=== PATIENT | male | born 1990 | race Two or more races ===

== ENCOUNTER 2017-08-05 15:58 | Emergency (ER) | payer BC ==
[2017-08-05] MEDS ORDERED: Ondansetron 4 MG/2 ML SDV IV ONE (16:31)
--- NOTE | 2017-08-05 16:37 | EDM.PDOC ---
ED HPI GENERAL MEDICAL PROBLEM - General Chief Complaint: Abdominal Pain Stated Complaint: POSSIBLE APPENDICISITIS [id number] Time Seen by Provider: 08/05/17 16:32 Source of Information: Reports: Patient History Limitations: Reports: No Limitations - History of Present Illness INITIAL COMMENTS - FREE TEXT/NARRATIVE: This 27 yo male patient reports to the ED with increased right lower quadrant pain. The patient reports his pain started at about 0400 this morning and has continued to get worse throughout the day. The patient reports he has also been nauseated and vomiting. The patient has attempted to sip on water, but has been throwing that up each time he drinks some. The patient reports he has no history of drug or ETOH use. The patient reports his grandfather recently of pancreatic cancer. The patient reports he had a normal bowel movement yesterday, but has not had a bowel movement today. The patient has no history of abdominal surgeries. Onset: Today Onset Date: 08/05/17 Onset Time: 04:00 Duration: Constant, Getting Worse Location: Reports: Abdomen (RLQ) Quality: Reports: Ache, Sharp, Stabbing Severity: Severe Improves with: Reports: None Worsens with: Reports: None Associated Symptoms: Reports: Nausea/Vomiting Right Lower Abdominal Pain Score (Numeric/FACES): 8 - Related Data Allergies Allergy/AdvReac Type Severity Reaction Status Date / Time No Known Allergies Allergy Verified 08/05/17 16:29 Home Meds: Home Meds . [No Known Home Meds] 08/05/17 [History] ED ROS GENERAL - Review of Systems Review Of Systems: ROS reveals no pertinent complaints other than HPI. ED EXAM, GI/ABD - Physical Exam Exam: See Below Exam Limited By: No Limitations General Appearance: Alert, WD/WN, Moderate Distress Eyes: Bilateral: Normal Appearance, EOMI Ears: Normal External Exam, Normal Canal, Hearing Grossly Normal, Normal TMs Nose: Normal Inspection, Normal Mucosa, No Blood Throat/Mouth: Normal Inspection, Normal Lips, Normal Teeth, Normal Gums, Normal Oropharynx, Normal Voice, No Airway Compromise Head: Atraumatic, Normocephalic Neck: Normal Inspection, Supple, Non-Tender, Full Range of Motion Respiratory/Chest: No Respiratory Distress, Lungs Clear, Normal Breath Sounds, No Accessory Muscle Use, Chest Non-Tender Cardiovascular: Normal Peripheral Pulses, Regular Rate, Rhythm, No Edema, No Gallop, No JVD, No Murmur, No Rub GI/Abdominal Exam: Normal Bowel Sounds, Guarding (RLQ), Rebound (RLQ), Tender, Other (Male) Exam: Deferred Rectal (Males) Exam: Deferred Back Exam: Normal Inspection, Full Range of Motion, NT Extremities: Normal Inspection, Normal Range of Motion, Non-Tender, Normal Capillary Refill, No Pedal Edema Neurological: Alert, Oriented, CN II-XII Intact, Normal Cognition, Normal Gait, Normal Reflexes, No Motor/Sensory Deficits Psychiatric: Normal Affect, Normal Mood Skin Exam: Warm, Dry, Intact, Normal Color, No Rash Lymphatic: No Adenopathy Course - Vital Signs Last Recorded V/S: Last Vital Signs Temp 37.3 C 08/05/17 16:05 Pulse 80 08/05/17 16:05 Resp 18 08/05/17 16:05 BP 175/80 H 08/05/17 16:05 Pulse Ox 99 08/05/17 16:05 - Orders/Labs/Meds Labs: Laboratory Tests 08/05/17 08/05/17 08/05/17 Range/Units 16:03 16:03 16:18 WBC 8.1 (5.0-10.0) 10^3/uL RBC 6.22 H (4.6-6.2) 10^6/uL Hgb 17.2 (14.0-18.0) g/dL Hct 48.6 (40.0-54.0) % MCV 78.1 L (80-100) fL MCH 27.7 (27.0-34.0) pg MCHC 35.4 H (33.0-35.0) g/dL Plt Count 164 (150-450) 10^3/uL Neut % (Auto) 68.1 (42.2-75.2) % Lymph % (Auto) 21.9 (20.5-50.1) % [place] % (Auto) 6.6 (2-8) % Eos % (Auto) 3.2 H (1.0-3.0) % Baso % (Auto) 0.2 (0.0-1.0) % Sodium (135-145) mmol/L Potassium (3.6-5.0) mmol/L Chloride (101-111) mmol/L Carbon Dioxide (21.0-31.0) mmol/L Anion Gap BUN (7-18) mg/dL Creatinine (0.6-1.3) mg/dL Est Cr Clr Drug Dosing Estimated GFR (MDRD) BUN/Creatinine Ratio Glucose (74-105) mg/dL Calcium (8.4-10.2) mg/dl Total Bilirubin (0.2-1.0) mg/dL AST (10-42) IU/L ALT (10-60) IU/L Alkaline Phosphatase (42-121) IU/L Total Protein (6.7-8.2) g/dl Albumin (3.2-5.5) g/dl Globulin Albumin/Globulin Ratio Amylase (28-100) U/L Lipase (22-51) U/L Urine Color Dark yellow (YELLOW) Urine Appearance Slightly cloudy (CLEAR) Urine pH 6.0 (5.0-9.0) Ur Specific [place] >= 1.030 (1.005-1.030) Urine Protein 30 H (NEGATIVE) Urine Glucose (UA) 500 H (NEGATIVE) Urine Ketones Trace H (NEGATIVE) Urine Occult Blood Negative (NEGATIVE) Urine Nitrite Negative (NEGATIVE) Urine Bilirubin Negative (NEGATIVE) Urine Urobilinogen 0.2 (0.2-1.0) mg/dL Ur Leukocyte Esterase Negative (NEGATIVE) Urine RBC 0-5 /HPF Urine WBC Not seen (0-5/HPF) /HPF Ur Epithelial Cells Rare /HPF Urine Mucus Few H /LPF Urine Opiates Screen Negative (NEGATIVE) Ur Oxycodone Screen Negative (NEGATIVE) Urine Methadone Screen Negative (NEGATIVE) Ur Barbiturates Screen Negative (NEGATIVE) U Tricyclic Antidepress Negative (NEGATIVE) Ur Phencyclidine Scrn Negative (NEGATIVE) Ur Amphetamine Screen Negative (NEGATIVE) U Methamphetamines Scrn Negative (NEGATIVE) Urine MDMA Screen Negative (NEGATIVE) U Benzodiazepines Scrn Negative (NEGATIVE) Urine Cocaine Screen Negative (NEGATIVE) U Marijuana (THC) Screen Negative (NEGATIVE) 08/05/17 08/05/17 08/05/17 Range/Units 16:18 16:18 16:18 WBC (5.0-10.0) 10^3/uL RBC (4.6-6.2) 10^6/uL Hgb (14.0-18.0) g/dL Hct (40.0-54.0) % MCV (80-100) fL MCH (27.0-34.0) pg MCHC (33.0-35.0) g/dL Plt Count (150-450) 10^3/uL Neut % (Auto) (42.2-75.2) % Lymph % (Auto) (20.5-50.1) % [place] % (Auto) (2-8) % Eos % (Auto) (1.0-3.0) % Baso % (Auto) (0.0-1.0) % Sodium 139 (135-145) mmol/L Potassium 3.8 (3.6-5.0) mmol/L Chloride 102 (101-111) mmol/L Carbon Dioxide 26.0 (21.0-31.0) mmol/L Anion Gap 14.8 BUN 10 (7-18) mg/dL Creatinine 0.8 (0.6-1.3) mg/dL Est Cr Clr Drug Dosing TNP Estimated GFR (MDRD) > 60 BUN/Creatinine Ratio 12.50 Glucose 233 H (74-105) mg/dL Calcium 9.6 (8.4-10.2) mg/dl Total Bilirubin 1.5 H (0.2-1.0) mg/dL AST 61 H (10-42) IU/L ALT 132 H (10-60) IU/L Alkaline Phosphatase 89 (42-121) IU/L Total Protein 7.4 (6.7-8.2) g/dl Albumin 4.9 (3.2-5.5) g/dl Globulin 2.5 Albumin/Globulin Ratio 1.96 Amylase 68 (28-100) U/L Lipase 35 (22-51) U/L Urine Color (YELLOW) Urine Appearance (CLEAR) Urine pH (5.0-9.0) Ur Specific [place] (1.005-1.030) Urine Protein (NEGATIVE) Urine Glucose (UA) (NEGATIVE) Urine Ketones (NEGATIVE) Urine Occult Blood (NEGATIVE) Urine Nitrite (NEGATIVE) Urine Bilirubin (NEGATIVE) Urine Urobilinogen (0.2-1.0) mg/dL Ur Leukocyte Esterase (NEGATIVE) Urine RBC /HPF Urine WBC (0-5/HPF) /HPF Ur Epithelial Cells /HPF Urine Mucus /LPF Urine Opiates Screen (NEGATIVE) Ur Oxycodone Screen (NEGATIVE) Urine Methadone Screen (NEGATIVE) Ur Barbiturates Screen (NEGATIVE) U Tricyclic Antidepress (NEGATIVE) Ur Phencyclidine Scrn (NEGATIVE) Ur Amphetamine Screen (NEGATIVE) U Methamphetamines Scrn (NEGATIVE) Urine MDMA Screen (NEGATIVE) U Benzodiazepines Scrn (NEGATIVE) Urine Cocaine Screen (NEGATIVE) U Marijuana (THC) Screen (NEGATIVE) Meds: Medications Discontinued Medications Generic Name Dose Route Start Last Admin Trade Name Freq PRN Reason Stop Dose Admin Iopamidol 100 ml 08/05/17 17:06 08/05/17 17:31 Isovue-300 (61%) IVPUSH 08/05/17 17:07 100 ml ONETIME ONE Administration Morphine Sulfate 4 mg 08/05/17 17:09 08/05/17 17:19 Morphine IVPUSH 08/05/17 17:10 4 mg ONETIME ONE Administration Ondansetron HCl 4 mg 08/05/17 16:31 08/05/17 16:43 Zofran IV 08/05/17 16:32 4 mg ONETIME ONE Administration Departure - Departure Time of Disposition: 18:42 Disposition: DC/Tfer to Acute Hospital 02 Condition: Serious Clinical Impression: Acute appendicitis Qualifiers: Acute appendicitis type: with localized peritonitis Qualified Code(s): K35.3 - Acute appendicitis with localized peritonitis - Discharge Information Referrals: PCP,None [Primary Care Provider] - Forms: Interfacility Transfer EMTALA Care Plan Goals: Discussed the history, examination, lab and CT results with the [facility] nurse. The patient was accepted by Dr. Osorio (Surgery) for continued evaluation and management. The patient will be transferred by [facility].
[2017-08-05 16:56] LABS: CHLORIDE,CL 102 mmol/L (101-111); SODIUM,NA 139 mmol/L (135-145)
[2017-08-05] MEDS ORDERED: Iopamidol 612 MG/ML 100 ML Bottle IVPUSH ONE (17:06)
[2017-08-05] MEDS ORDERED: Morphine 4 MG/ML Syringe IVPUSH ONE (17:09)
[2017-08-05 18:46] VITALS: BP 145/90
[2017-08-05] MEDS ORDERED: Morphine 2 MG/ML Syringe IVPUSH ONE (18:46)
== END 2017-08-05 18:55 ==
LOC: DL.ED 15:58
DX: K35.3 Acute appendicitis with localized peritonitis (principal)
CPT/HCPCS: 36415; 74177; 80053; 80305; 81001; 82150; 83690; 85025; 96374; 96375; 96376; 99285; J2270; J2405; Q9967